=== PATIENT | male | born 1990 | race Asian ===

== ENCOUNTER 2016-10-10 14:55 | Emergency (ER) | payer OTHER ==
[~2016-10-10] VITALS: Ht 175.3 cm; Wt 96.6 kg
== END 2016-10-10 16:54 | disposition home or self-care (01) ==
LOC: ED 14:55
DX: M23.92 Unspecified internal derangement of left knee (principal); X50.1XXA Overexertion from prolonged static or awkward postures, initial encounter; Y92.149 Unspecified place in prison as the place of occurrence of the external cause
CPT/HCPCS: 96372; 99282; J1885